=== PATIENT | male | born 1970 | race Caucasian/White ===

== ENCOUNTER → 2017-01-11 | Outpatient (CLI) | payer OTHER, MEDICAID | LOC: FIMAGING 12:38 | PROVIDERS: ATTEND Registered Nurse | DX: M48.02 Spinal stenosis, cervical region (principal); M46.92 Unspecified inflammatory spondylopathy, cervical region; M50.31 Other cervical disc degeneration, high cervical region; M50.223 Other cervical disc displacement at C6-C7 level ==

== ENCOUNTER 2017-03-01 13:37 | Day surgery (SDC) | payer MEDICAID, OTHER ==
[2017-03-01] MEDS ORDERED: TRIAMCINOLONE ACETONIDE 200 MG/5 ML MDV IM ONE (16:00)
[2017-03-01] MEDS ORDERED: IOPAMIDOL (ISOVUE-M 300) 15 ML VIAL ONE (16:00)
--- NOTE | 2017-03-01 16:00 | PDGENHP ---
History & Physical Chief Complaint: Low back pain and left sciatica History of Present Illness: Good results from previous LESI in 2015. Now has pain varying from 2 to 7/10 severity. On multiple pain medications. M54.5, M54.30 Pertinent Past, Social, Family History: LESI and cervical NAYELY. Allergy: Sulfa (rash) Relevant Physical Exam: Previous lumbar MRI (2014) reviewed.
--- NOTE | 2017-03-01 16:02 | PDRADPN ---
Radiology Procedure Note Date of Procedure: 03/01/17 Radiologist: Ramon Matute Anesthesia: Local (Specify) Pre-op Diagnosis: Lumbar pain and sciatica LLE Post-op Diagnosis: Same Indication: Same Procedure: Lumbar NAYELY Finding(s): 2.5 ml kenalog (100 mg) and 3 ml PF 1% xylocaine injected into lumbar epidural space via L4-5. Inf/Abcess present in the surg proc area at time of surgery?: No EBL: Minimal Complications: 0
== END 2017-03-01 16:30 | disposition home or self-care (01) ==
LOC: FIMAGING 13:37
PROVIDERS: ATTEND Radiology Diagnostic Radiology
PROC: 3E0S33Z Introduction of Anti-inflammatory into Epidural Space, Percutaneous Approach (ICD-10-PCS; principal; 2017-03-01)
PROC: 3E0S3BZ Introduction of Anesthetic Agent into Epidural Space, Percutaneous Approach (ICD-10-PCS; principal; 2017-03-01)
DX: M54.41 Lumbago with sciatica, right side (principal); Z88.2 Allergy status to sulfonamides
CPT/HCPCS: J3301; Q9967